=== PATIENT | male | born 1995 | race Caucasian/White ===

== ENCOUNTER → 2016-05-01 | Outpatient (CLI) | payer OTHER ==
--- NOTE | 2016-05-01 13:58 | Diagnostic Imaging Report ---
INDICATION: Back pain, scoliosis. COMPARISON: None. FINDINGS: AP views of the thoracic and lumbar spine demonstrate normal alignment. There is no curvature that would indicate scoliosis. No osseous lesion. IMPRESSION: No measurable scoliosis. Dictated by: Dictated on workstation # [id number]
== END ==
LOC: RAD 12:48
PROVIDERS: ATTEND Physician Assistant
DX: M54.5 Low back pain (principal)
CPT/HCPCS: 72082

== ENCOUNTER 2016-05-30 07:30 | Outpatient (RCR) | payer OTHER | END 2016-06-08 12:00 | disposition home or self-care (01) | LOC: PT 07:30 | PROVIDERS: ATTEND Family Medicine | DX: M54.5 Low back pain (principal) | CPT/HCPCS: 97032; 97110; 97161; G0283; 97014 ==